=== PATIENT | male | born 1935 | race Caucasian/White ===

== ENCOUNTER 2018-04-15 13:18 | Emergency (ER) | payer MEDICARE, OTHER ==
[~2018-04-15] VITALS: Ht 170.2 cm; Wt 77.6 kg
[~2018-04-15 13:18] MED LIST: ABAC300; ACET325 PO; ACET500 PO; ALBU90OI INH; ALLO100 PO; ALLO300; AREDS-2 PO; ASPI81EC PO; Actigall300 MG PT; Bactrim Ds Tab1 EACH PO; DABI150C PO; ELIQUIS2.5 MG PO; FERR325 PO; FURO20 PO; HYDACE5 PO; LEVO750 PO; MAGNESIUM250 MG PO; METAMUCIL660 GM PO; MULVITMINF PO; Metoprolol Succ25 MG PO; OMEP20ER PO; Omeprazole20 M1; PRED20 PO; Preservision A1 EACH PO; RANI150 PO; RANO500T PO; VALS80 PO; WARF5; Zithromax250 MG PO
== END 2018-04-15 13:46 | disposition home or self-care (01) ==
LOC: ER 13:18
DX: S80.11XA Contusion of right lower leg, initial encounter (principal); I10 Essential (primary) hypertension; K21.9 Gastro-esophageal reflux disease without esophagitis; Z88.6 Allergy status to analgesic agent; Z88.5 Allergy status to narcotic agent; Z88.8 Allergy status to other drugs, medicaments and biological substances; Z79.899 Other long term (current) drug therapy; Z79.01 Long term (current) use of anticoagulants; W22.8XXA Striking against or struck by other objects, initial encounter; Z95.4 Presence of other heart-valve replacement
CPT/HCPCS: 99283

== ENCOUNTER → 2019-11-26 | Outpatient (CLI) | payer MEDICARE, OTHER ==
[~2019-11-26] MED LIST changes: +Actigall300 MG PO; -Actigall300 MG PT; +DILTIAZEM 24HR120 M2 PO; +NITR.4SL SL; +PROAIR DIGIHAL90 MCG INH
[2019-11-26 13:41] LABS: Stool Occult Bld Immuno 1 Negative (NEGATIVE); Stool Occult Bld Immuno 2 Negative (NEGATIVE)
== END | disposition home or self-care (01) ==
LOC: LAB 08:30 → LAB SHORT 08:30 → LAB FUT 09-25 11:35
PROVIDERS: Internal Medicine Gastroenterology
DX: D50.9 Iron deficiency anemia, unspecified (principal); R19.5 Other fecal abnormalities
CPT/HCPCS: 82274

== ENCOUNTER 2019-12-08 19:32 | Inpatient (IN) | payer MEDICARE, OTHER ==
[~2019-12-08] VITALS: Ht 154.9 cm; Wt 77.8 kg
[~2019-12-08 19:32] MED LIST changes: +ALLO300 PO; -FERR325 PO; +FERSU300 PO; +Hair, Skin & N1 EACH PO; -MULVITMINF PO; -Omeprazole20 M1; +Omeprazole20 M1 PO
[2019-12-08 19:57] LABS: BASOPHILS ABSOLUTE AUTO 0.02 K/mm3 (0.00-0.23); BASOPHILS PERCENT AUTO 0 % (0-2); EOSINOPHILS PERCENT AUTO 0 % (0-6); Hematocrit 31.6 % (37.0-53.0); Hemoglobin 10.3 g/dL (13.5-17.5); IMMATURE GRAN ABSOLUTE AUTO 0.06 K/mm3 (0.00-0.10); IMMATURE GRAN PERCENT AUTO 1 % (0-1); LYMPHOCYTES ABSOLUTE AUTO 0.49 K/mm3 (0.84-5.20); LYMPHOCYTES PERCENT AUTO 4 % (21-46); MONOCYTES ABSOLUTE AUTO 1.38 K/mm3 (0.16-1.47); MONOCYTES PERCENT AUTO 12 % (4-13); Mean Corpuscular HGB 33.6 pg (26.0-34.0); Mean Corpuscular HGB Conc 32.6 g/dL (31.5-36.5); Mean Corpuscular Volume 103 fL (80-100); Mean Platelet Volume 10.5 fL (9.1-12.4); NEUTROPHILS ABSOLUTE AUTO 9.89 K/mm3 (1.96-9.15); NEUTROPHILS PERCENT AUTO 84 % (41-73); Platelet Count 146 K/mm3 (150-400); RDW Coefficient Variation 13.6 % (11.7-14.2); RDW Standard Deviation 51.9 fL (35.1-46.3); Red Blood Cell Count 3.07 M/mm3 (4.30-5.90); White Blood Cell Count 11.84 K/mm3 (4.00-11.30)
[2019-12-08 20:14] LABS: Albumin, Blood 3.5 g/dL (3.4-5.0); Albumin/Globulin Ratio 0.8 (0.8-1.8); Calcium, Blood 8.8 mg/dL (8.5-10.1); Creatinine, Blood 1.57 mg/dL (0.60-1.20); Globulin, Blood 4.4 g/dL (2.2-4.0); Potassium, Blood 4.7 mmol/L (3.5-5.5); Total Protein, Blood 7.9 g/dL (6.4-8.2)
[2019-12-08 20:14] LABS: PCO2 Arterial 29.3 mmHg (35-45); PO2 Arterial 71.8 mmHg (80-100); pH Blood Arterial 7.47 (7.35-7.45)
[2019-12-08 20:18] LABS: Source, Urine Voided
[2019-12-08 20:20] LABS: Appearance, Urine Clear (Clear); Bilirubin, Urine Neg (Neg); Blood, Urine 2+ (Neg); Color, Urine Yellow (P-Yellow); Glucose Qualitative, Urine Neg (Neg); Ketones, Urine Neg (Neg); Leukocyte Esterase, Urine Neg (Neg); Nitrite, Urine Neg (Neg); Protein, Urine 3+ (Neg); Urobilinogen, Urine 2+ (Normal)
[2019-12-08 20:30] LABS: Bacteria Few /hpf; Squamous Epithelial Cells Rare /hpf (Few); White Blood Cells, Urine 0-2 /hpf (0-5)
[2019-12-08] MEDS ORDERED: DILT120 PO (21:01)
[2019-12-08] MEDS ORDERED: ASCO500 PO (21:04)
[2019-12-08] MEDS ORDERED: Vitamin D2000 UNIT PO (21:04)
[2019-12-08 22:05] LABS: Adenovirus Not Detected (NOT DETECT); Bordetella pertussis Not Detected (NOT DETECT); Chlamydophila pneumoniae Not Detected (NOT DETECT); Coronavirus 229E Not Detected (NOT DETECT); Coronavirus HKU1 Not Detected (NOT DETECT); Coronavirus NL63 Not Detected (NOT DETECT); Coronavirus OC43 Not Detected (NOT DETECT); Human Metapneumovirus Not Detected (NOT DETECT); Human Rhinovirus/Enterovirus Not Detected (NOT DETECT); Influenza A/2009-H1 Not Detected (NOT DETECT); Influenza A/H1 Not Detected (NOT DETECT); Influenza A/H3 Not Detected (NOT DETECT); Influenza B Not Detected (NOT DETECT); Mycoplasma pneumoniae Not Detected (NOT DETECT); Parainfluenza Virus 1 Not Detected (NOT DETECT); Parainfluenza Virus 2 Not Detected (NOT DETECT); Parainfluenza Virus 3 Not Detected (NOT DETECT); Parainfluenza Virus 4 Not Detected (NOT DETECT); Respiratory Syncytial Virus Not Detected (NOT DETECT)
--- NOTE | 2019-12-09 00:20 | NUR ---
ASSUMED CARE OF PATIENT AT APPROXIMALEY 2315 FROM ED RN. PATIENT TRANSFERRED SBA FROM ED TO PCU STRETCHER. PATIENT ALERT AND ORIENTED TO SELF, , LOCATION AND YEAR; UNABLE TO STATE DATE. FORGETFUL. PATIENT DENIES CP/PRESSURE, PAIN ELSEWHERE, NUMBNESS, TINGLING, DIZZINESS OR NAUSEA. AFIB ON TELE W/ RATE OF 110'S; OXYGEN SATURATION ABOVE 90% ON 2LPM VIA NC OR CPAP. IN ISOLATION TO R/O COVID; RAPID NEGATIVE; SEND OUT ESCORTED TO LAB BY BRITTANIE HILL COMPLETE. IVF INFUSING PER ORDER. PATIENT CURRENTLY RESTING IN BED; CALL LIGHT IN REACH; BED IN LOWEST POSISTION; BED ALARM ON; WILL CONTINUE TO MONITOR AND ASSESS UNTIL END OF SHIFT.
--- NOTE | 2019-12-09 06:15 | NUR ---
NO ACUTE CHANGES TO REPORT. PATIENT SLEPT ABOUT FIVE HOURS. VSS. WILL CONTINUE TO MONITOR AND ASSESS UNTIL END OF SHIFT.
[2019-12-09 07:24] LABS: BASOPHILS ABSOLUTE AUTO 0.03 K/mm3 (0.00-0.23); BASOPHILS PERCENT AUTO 0 % (0-2); EOSINOPHILS PERCENT AUTO 0 % (0-6); Hemoglobin 8.4 g/dL (13.5-17.5); IMMATURE GRAN ABSOLUTE AUTO 0.33 K/mm3 (0.00-0.10); IMMATURE GRAN PERCENT AUTO 2 % (0-1); LYMPHOCYTES ABSOLUTE AUTO 0.39 K/mm3 (0.84-5.20); LYMPHOCYTES PERCENT AUTO 2 % (21-46); MONOCYTES PERCENT AUTO 8 % (4-13); Mean Corpuscular HGB 33.5 pg (26.0-34.0); Mean Corpuscular HGB Conc 32.3 g/dL (31.5-36.5); Mean Corpuscular Volume 104 fL (80-100); Mean Platelet Volume 10.8 fL (9.1-12.4); NEUTROPHILS ABSOLUTE AUTO 18.92 K/mm3 (1.96-9.15); NEUTROPHILS PERCENT AUTO 89 % (41-73); Platelet Count 94 K/mm3 (150-400); RDW Coefficient Variation 13.8 % (11.7-14.2); RDW Standard Deviation 53.3 fL (35.1-46.3); Red Blood Cell Count 2.51 M/mm3 (4.30-5.90); White Blood Cell Count 21.37 K/mm3 (4.00-11.30)
[2019-12-09 07:40] LABS: Albumin, Blood 2.6 g/dL (3.4-5.0); Albumin/Globulin Ratio 0.7 (0.8-1.8); Bilirubin, Total 0.8 mg/dL (0.1-1.0); Bun/Creatinine Ratio 19.9 (12.0-20.0); Calcium, Blood 7.8 mg/dL (8.5-10.1); Creatinine, Blood 1.46 mg/dL (0.60-1.20); Globulin, Blood 3.7 g/dL (2.2-4.0); Potassium, Blood 4.7 mmol/L (3.5-5.5); Total Protein, Blood 6.3 g/dL (6.4-8.2)
--- NOTE | 2019-12-09 15:46 | NUR ---
HOSPITALIST UPDATED ON PT CONDITION. PT HAS AN INCREASED SOB, TEMP, PULSE & 1 EPISODE OF EMESIS. LUNG SOUNDS REMAIN DIM IN THE LLL, WHEEZES THROUGHOUT. PT DENIES CP/PRESSURE AT THIS TIME. PT IS CURRENTLY ON 2 L VIA NC, O2 SATS >92%. NS INFUSION DECREASED FROM 75 ML/HR TO 25 ML/HR. NO NEW ORDERS OBTAINED AT WERE OBTAINED. RESP THERAPY DEPT NOTIFIED AT THIS TIME. LINEN CHANGED, TYLENOL GIVEN. CALL LIGHT IN REACH, [facility] [place] [facility]
--- NOTE | 2019-12-09 18:34 | NUR ---
SHIFT SUMMARY PT IS RESTING QUIETLY IN BED AT THIS TIME, RESP UNLABORED, VSS. NS INFUSING @ 25 ML/HR, TEMP HAS DECREASED TO 99.4, PT HAS HAD NO MORE NAUSEA. HOSPITALIST CAME TO THE BEDSIDE TO ASSESS PT. PT STATED HE "WAS FEELING MUCH BETTER". IV ROCEPHIN INFUSING PER EMAR. CONT BIOX IN PLACE, PT HAS HAD MULTIPLE STOOLS TODAY, DENIES ABD PAIN. PT S A STAND BY ASSIST TO THE BATHROOM. WCTM & REPORT TO NOC RN, CALL LIGHT IN REACH.
[2019-12-10 04:33] LABS: BASOPHILS ABSOLUTE AUTO 0.01 K/mm3 (0.00-0.23); BASOPHILS PERCENT AUTO 0 % (0-2); Hematocrit 26.1 % (37.0-53.0); Hemoglobin 8.3 g/dL (13.5-17.5); LYMPHOCYTES ABSOLUTE AUTO 0.24 K/mm3 (0.84-5.20); LYMPHOCYTES PERCENT AUTO 1 % (21-46); MONOCYTES ABSOLUTE AUTO 1.25 K/mm3 (0.16-1.47); MONOCYTES PERCENT AUTO 6 % (4-13); Mean Corpuscular HGB 33.1 pg (26.0-34.0); Mean Corpuscular HGB Conc 31.8 g/dL (31.5-36.5); Mean Corpuscular Volume 104 fL (80-100); Platelet Count 76 K/mm3 (150-400); RDW Coefficient Variation 13.9 % (11.7-14.2); RDW Standard Deviation 53.3 fL (35.1-46.3); Red Blood Cell Count 2.51 M/mm3 (4.30-5.90); White Blood Cell Count 20.14 K/mm3 (4.00-11.30)
[2019-12-10 04:47] LABS: Bun/Creatinine Ratio 22.9 (12.0-20.0); Calcium, Blood 8.1 mg/dL (8.5-10.1); Creatinine, Blood 1.7 mg/dL (0.60-1.20); Potassium, Blood 5.1 mmol/L (3.5-5.5)
[2019-12-10 04:51] LABS: EOSINOPHILS PERCENT AUTO 0 % (0-6); IMMATURE GRAN PERCENT AUTO 3 % (0-1); NEUTROPHILS ABSOLUTE AUTO 18.04 K/mm3 (1.96-9.15); NEUTROPHILS PERCENT AUTO 90 % (41-73)
--- NOTE | 2019-12-10 07:57 | NUR ---
SHIFT SUMMARY PATIENT PLEASENT AND COOPERATIVE THROUGHOUT THE NIGHT. PATIENT VERY CHEERFUL AND TALKITIVE WITH STAFF. PATIENT APPEARED TO SLEEP WELL LAST NIGHT. PATIENT USED HIS CPAP THROUGHOUT MOST OF THE NIGHT, CONTINUOUS BIOX IN PLACE. PATIENT ON 2-3L O2 WHEN OFF CPAP. REPORT GIVEN TO ONCOMING RN.
--- NOTE | 2019-12-10 08:50 | NUR ---
AM NOTE... ASSUMED CARE OF PT APROX 0700. PT IS A&0x4 AND SBA IN THE ROOM. PT IS IN R/O FOR COVID-19. PT IS ON HIS HOME DOSE OF O2 AT 3L NC WITH O2 SATS >90%. PT BECOMES SOB WITH ACTIVITY, AND RECOVERS FAIRLY QUICKLY WITH PURSED LIP BREATHING. L/S COARSE W/EXP WHEEZES T/O AND DIM IN THE BASES. BT PRESENT AND NORMOACTIVE ABD SOFT AND NONTENDER TO PALP. PT WAS ABLE TO WALK TO THE BATHROOM TO HAVE SM BM. NO EDEMA NOTED ON ASSESSMENT. CALL LIGHT IN REACH WILL CONTINUE TO MONITOR.
--- NOTE | 2019-12-10 18:12 | NUR ---
SHIFT SUMMARY... PT HAD AN EPISODE APROX 1145 THIS SHIFT. PT'S HR SHOT UP FROM AFIB IN THE 90'S TO 140'S-150'S, PT WAS VERY SOB, WITH LABORED BREATHING, O2 WAS INCREASED FROM 3L NC TO 6L NC. RT WAS CALLED AND WAS GIVEN RESCUE INHALER TO THE PT. PT'S BP WAS STABLE AT THE TIME BUT HIS TEMP WAS 102.8. PT WAS PUT ON HIS CPAP WITH 6L BLEED IN, PROVIDER WAS CALLED, NEW ORDERS OBTAINED FOR NEBULIZERS AND INCREASED FLUIDS. PT WAS GIVEN TYLENOL FOR HIS TEMP AND MONITORED, AFTER APROX 30 MINS HIS WORK OF BREATHING DECREASED WELL HIS HEART RATE. CURRENTLY HE IS AFIB IN THE 100'S. PT'S COVID-19 CAME BACK NEGATIVE. THIS RN SPOKE WITH THE PT'S , PER HER THE PT DOES NOT WEAR O2 AT HOME JUST HIS CPAP WITH NO BLEED IN TO SLEEP. PT WAS CONFUSED ON THIS ISSUE WHEN THIS RN ASKED HIM THIS AM THE PT STATED HE WORE 3L NC AT BASELINE. PT IS ON RA AT BASELINE. CALL LIGHT IN REACH WILL CONTINUE TO MONITOR UNTIL REPORT IS GIVEN TO ONCOMING RN.
--- NOTE | 2019-12-11 05:24 | NUR ---
SHIFT SUMMARY: PT AFEBRILE THROUGHOUT SHIFT. HR STABLE RANGING IN 80-90'S. O2 TITRATED DOWN TO 1L VIA NC THIS MORNING. PT WITH EXPIRATORY WHEEZE AT TIMES. O2 DROPPING TO LOW 90'S WITH MOVEMENT. CONT BIOX IN PLACE. LAST BAG OF FLUIDS INFUSING PER EMAR. USING URINAL AT BEDSIDE.
--- NOTE | 2019-12-11 07:43 | NUR ---
AM NOTE... ASSUMED CARE OF PT APROX 0700. PT IS A&Ox4 AND SBA IN THE ROOM. PT LOOKS MUCH BETTER THAN HE DID YESTERDAY, IMPROVED COLOR IN HIS SKIN, WORK OF BREATHING HAS IMPROVED AND PT IS ON 1L NC WITH O2 SATS >92%. L/S DIM ON THE LEFT SIDE COARSE CRACKLES NOTED ON THE RIGHT. RR 28 EVEN AND UNLABORED. NO EDEMA NOTED ON ASSESSMENT. VS STABLE AT THIS TIME. CALL LIGHT IN REACH WILL CONTINUE TO MONITOR
[2019-12-11 09:17] LABS: BASOPHILS ABSOLUTE AUTO 0.02 K/mm3 (0.00-0.23); BASOPHILS PERCENT AUTO 0 % (0-2); EOSINOPHILS PERCENT AUTO 0 % (0-6); IMMATURE GRAN PERCENT AUTO 2 % (0-1); LYMPHOCYTES ABSOLUTE AUTO 0.43 K/mm3 (0.84-5.20); LYMPHOCYTES PERCENT AUTO 2 % (21-46); MONOCYTES ABSOLUTE AUTO 1.13 K/mm3 (0.16-1.47); MONOCYTES PERCENT AUTO 5 % (4-13); Mean Corpuscular HGB 33.5 pg (26.0-34.0); Mean Corpuscular HGB Conc 32.2 g/dL (31.5-36.5); Mean Corpuscular Volume 104 fL (80-100); Mean Platelet Volume 11.4 fL (9.1-12.4); NEUTROPHILS ABSOLUTE AUTO 20.02 K/mm3 (1.96-9.15); NEUTROPHILS PERCENT AUTO 91 % (41-73); NRBC ABSOLUTE 0.02 K/mm3 (0.00-0.02); NRBC Auto 0.1 /100 WBC (0.0-0.2); Platelet Count 109 K/mm3 (150-400); RDW Coefficient Variation 13.9 % (11.7-14.2); RDW Standard Deviation 52.8 fL (35.1-46.3)
[2019-12-11 09:25] LABS: Hematocrit 17.7 % (37.0-53.0); Hemoglobin 5.7 g/dL (13.5-17.5)
[2019-12-11 09:53] LABS: Albumin, Blood 2.6 g/dL (3.4-5.0); Albumin/Globulin Ratio 0.6 (0.8-1.8); Bilirubin, Direct 0.3 mg/dL (0.0-0.3); Bilirubin, Indirect 0.2 mg/dL (0.1-0.7); Bilirubin, Total 0.5 mg/dL (0.1-1.0); Globulin, Blood 4.1 g/dL (2.2-4.0); Total Protein, Blood 6.7 g/dL (6.4-8.2)
[2019-12-11 10:08] LABS: BASOPHILS ABSOLUTE AUTO 0.01 K/mm3 (0.00-0.23); BASOPHILS PERCENT AUTO 0 % (0-2); EOSINOPHILS PERCENT AUTO 0 % (0-6); Hematocrit 27.1 % (37.0-53.0); Hemoglobin 8.8 g/dL (13.5-17.5); IMMATURE GRAN ABSOLUTE AUTO 0.23 K/mm3 (0.00-0.10); IMMATURE GRAN PERCENT AUTO 1 % (0-1); LYMPHOCYTES ABSOLUTE AUTO 0.29 K/mm3 (0.84-5.20); LYMPHOCYTES PERCENT AUTO 2 % (21-46); MONOCYTES ABSOLUTE AUTO 0.84 K/mm3 (0.16-1.47); MONOCYTES PERCENT AUTO 5 % (4-13); Mean Corpuscular HGB 33.2 pg (26.0-34.0); Mean Corpuscular HGB Conc 32.5 g/dL (31.5-36.5); Mean Corpuscular Volume 102 fL (80-100); Mean Platelet Volume 11.7 fL (9.1-12.4); NEUTROPHILS ABSOLUTE AUTO 15.09 K/mm3 (1.96-9.15); NEUTROPHILS PERCENT AUTO 92 % (41-73); NRBC ABSOLUTE 0.02 K/mm3 (0.00-0.02); NRBC Auto 0.1 /100 WBC (0.0-0.2); Platelet Count 94 K/mm3 (150-400); RDW Coefficient Variation 14.1 % (11.7-14.2); RDW Standard Deviation 53.4 fL (35.1-46.3); Red Blood Cell Count 2.65 M/mm3 (4.30-5.90); White Blood Cell Count 16.46 K/mm3 (4.00-11.30)
--- NOTE | 2019-12-11 15:46 | NUR ---
Echocardiogram completed.
--- NOTE | 2019-12-11 17:48 | NUR ---
SHIFT SUMMARY... NO ACUTE NEGATIVE CHANGES NOTED THIS SHIFT. VS HAVE BEEN STABLE T/O SHIFT. PT HAS BEEN AFEBRILE. PT HAS BEEN ON 1L NC WITH O2 SATS >92%. PT HAS BEEN UP IN THE CHAIR FOR MEALS AND HAS WALKED TO THE BATHROOM, HE BECOMES SLIGHTLY SOB WITH ACTIVITY BUT RECOVERS QUICKLY. PT HAS BEEN MORE IMPULSIVE THIS SHIFT, SO BED ALARM AND CHAIR ALARM HAVE BEEN USED. CALL LIGHT IN REACH WILL CONTINUE TO MONITOR UNTIL REPORT IS GIVEN TO ONCOMING RN.
--- NOTE | 2019-12-11 20:21 | NUR ---
ASSUMED CARE OF PATIENT AT APPROXIMATELY 1900 FROM ROSE Jaime RN. PATIENT ALERT AND ORIENTED X4; FORGETFUL AT TIMES. PATIENT DENIES CP/PRESSURE, PAIN ELSEWHERE, NUMBNESS, TINGLING, DIZZINESS OR NAUSEA. MEDICAL NO TELE STATUS; OXYGEN SATURATION ABOVE 90% ON ROOM AIR WHILE SITTING; 1LPM VIA NC WITH AMBULATION DUE TO DROPPING TO 88% AFTER RETURNING FROM BATHROOM; CPAP FOR SLEEP. PIV S/L. PATIENT CURRENTLY RESTING IN BED; CALL LIGHT IN REACH; BED IN LOWEST POSISTION; BED ALARM ON; WILL CONTINUE TO MONITOR AND ASSESS UNTIL END OF SHIFT.
[2019-12-12 04:08] LABS: BASOPHILS ABSOLUTE AUTO 0.01 K/mm3 (0.00-0.23); BASOPHILS PERCENT AUTO 0 % (0-2); EOSINOPHILS PERCENT AUTO 0 % (0-6); Hematocrit 24.4 % (37.0-53.0); IMMATURE GRAN ABSOLUTE AUTO 0.18 K/mm3 (0.00-0.10); IMMATURE GRAN PERCENT AUTO 1 % (0-1); LYMPHOCYTES PERCENT AUTO 2 % (21-46); MONOCYTES ABSOLUTE AUTO 1.06 K/mm3 (0.16-1.47); MONOCYTES PERCENT AUTO 8 % (4-13); Mean Corpuscular HGB 33.2 pg (26.0-34.0); Mean Corpuscular HGB Conc 32.8 g/dL (31.5-36.5); Mean Corpuscular Volume 101 fL (80-100); Mean Platelet Volume 11.7 fL (9.1-12.4); NEUTROPHILS ABSOLUTE AUTO 11.96 K/mm3 (1.96-9.15); NEUTROPHILS PERCENT AUTO 89 % (41-73); NRBC ABSOLUTE 0.08 K/mm3 (0.00-0.02); NRBC Auto 0.6 /100 WBC (0.0-0.2); Platelet Count 89 K/mm3 (150-400); RDW Standard Deviation 52.2 fL (35.1-46.3); Red Blood Cell Count 2.41 M/mm3 (4.30-5.90); White Blood Cell Count 13.41 K/mm3 (4.00-11.30)
[2019-12-12 04:23] LABS: Albumin, Blood 2.6 g/dL (3.4-5.0); Anion Gap 9 mmol/L (6-16); Blood Urea Nitrogen 47 mg/dL (8-24); Bun/Creatinine Ratio 29.2 (12.0-20.0); CO2, Blood 18 mmol/L (21-32); Calcium, Blood 8.2 mg/dL (8.5-10.1); Chloride, Blood 112 mmol/L (98-108); Creatinine, Blood 1.61 mg/dL (0.60-1.20); Glomerular Filtration Rate 44 (60-); Glucose, Blood 148 mg/dL (70-99); Potassium, Blood 4.8 mmol/L (3.5-5.5); Sodium, Blood 139 mmol/L (136-145)
--- NOTE | 2019-12-12 05:47 | NUR ---
PATIENT SLEPT ABOUT SIX HOURS LAST NIGHT; WORE CPAP FOR ABOUT TWO HOURS; ON ROOM AIR FOR REST OF NIGHT; REPORT CALLED TO MEDICAL RN ANNE Mcneal PATIENT HAD A SHOWER THIS AM; REPORTS READY TO GO HOME; ESCORTED VIA W/C BY YOLY MORTON TO MEDICAL ROOM 302 W/ ALL PATIENT BELONGINGS AND MEDICATIONS. VSS.
--- NOTE | 2019-12-12 05:56 | NUR ---
SHIFT SUMMARY RECEIVED PT AT 0545 TO ROOM 305. PT IS LYING IN BED FALLING BACK ASLEEP. CALL LIGHT IN REACH, BED IN LOWEST POSTION, BED ALARM ON, WILL CONTINUE TO MONITOR UNTIL DAYSHIFT NURSE ARRIVES.
--- NOTE | 2019-12-12 10:55 | NUR ---
PT AMBULATED APROX 100FT IN THE HALLWAYS. SATS 89-91% ON RA.
[2019-12-12] MEDS ORDERED: VISBIOME 112.51 EACH PO (11:54)
[2019-12-12] MEDS ORDERED: GUAI600T33 PO (11:54)
[2019-12-12] MEDS ORDERED: LIDOCAINE PAIN1 EACH TOP (11:57)
[2019-12-12] MEDS ORDERED: ALBU90OI INH (11:57)
[2019-12-12] MEDS ORDERED: LEVFLO500 PO (11:57)
--- NOTE | 2019-12-12 13:55 | NUR ---
ESCORTED PT OUT VIA W/C TO CAR TO MEET WITH SPOUSE, DISCHARGE INSTRUCTIONS REVIEWED WITH BOTH PT AND SPOUSE. RX FAXED TO [facility]. MANDI DC'D BY RN STUDENT ZOHRA. F/U APPT MADE WITH DR DENISE. IV HENRIETTA GIVEN PRIOR TO DISCHARGE. HOME 02 EVAL COMPLETED AND PT DID NOT REQUIRE HOME 02. HOME HEALTH ORDERS PLACED. PT SHORT OF BREATH WITH ANY EXERTION BUT SATS MAINTAINED ABOVE 90%. PT DC'D HOME AT 1340.
== END 2019-12-12 13:40 | disposition home or self-care (01) | DRG 871 ==
LOC: ER 19:32 → PCU 23:06 → MEDS 12-12 05:44
PROVIDERS: Internal Medicine; Nurse Practitioner Acute Care; Physician Assistant; ADMIT Internal Medicine
PROC: 5A09357 Assistance with Respiratory Ventilation, Less than 24 Consecutive Hours, Continuous Positive Airway Pressure (ICD-10-PCS; principal; 2019-12-10)
DX: A41.51 Sepsis due to Escherichia coli [E. coli] (principal); G92 Toxic encephalopathy; J96.01 Acute respiratory failure with hypoxia; J15.5 Pneumonia due to Escherichia coli; Z95.3 Presence of xenogenic heart valve; Z85.46 Personal history of malignant neoplasm of prostate; I48.0 Paroxysmal atrial fibrillation; G47.33 Obstructive sleep apnea (adult) (pediatric); M10.9 Gout, unspecified; Z95.0 Presence of cardiac pacemaker; I35.0 Nonrheumatic aortic (valve) stenosis; Z90.79 Acquired absence of other genital organ(s); N18.3 Chronic kidney disease, stage 3 (moderate); E66.9 Obesity, unspecified; Z99.2 Dependence on renal dialysis; I12.9 Hypertensive chronic kidney disease with stage 1 through stage 4 chronic kidney disease, or unspecified chronic kidney disease
CPT/HCPCS: 0099U; 36415; 36600; 71045; 76705; 80048; 80053; 80069; 80076; 81001; 82803; 83605; 83880; 84145; 84484; 85025; 87040; 87077; 87186; 93005; 93010; 93306; 94640; 94660; 94760; 94761; 94762; 96361; 96365; 96367; 97112; 97162; 97166; 97530; 97535; 99285-25; A9270; J0456; J0696; J2405; J7030; J7050; J7512; U0002; U0003

== ENCOUNTER → 2020-03-28 | Outpatient (CLI) | payer MEDICARE, OTHER ==
[~2020-03-28] MED LIST changes: +ASCO500 PO; +DILT120 PO; +GUAI600T33 PO; +LEVFLO500 PO; +LIDOCAINE PAIN1 EACH TOP; +VISBIOME 112.51 EACH PO; +Vitamin D2000 UNIT PO
[2020-03-28 15:46] LABS: Stool Occult Bld Immuno 1 Positive (NEGATIVE)
== END ==
LOC: LAB SHORT 10:28 → PLD 10:28
PROVIDERS: Internal Medicine Gastroenterology
DX: D50.9 Iron deficiency anemia, unspecified (principal)
CPT/HCPCS: 82274

== ENCOUNTER → 2020-03-30 | Outpatient (CLI) | payer MEDICARE, OTHER ==
[2020-03-30 15:49] LABS: Creatinine Urine 63.9 mg/dL (27.00-270.00); Protein, Urine Quantitative 45.5 mg/dL (0.0-11.9)
== END | disposition home or self-care (01) ==
LOC: LAB SHORT 12:36 → LAB 12:36
PROVIDERS: Internal Medicine Nephrology
DX: N18.3 Chronic kidney disease, stage 3 (moderate) (principal); D63.1 Anemia in chronic kidney disease; D50.9 Iron deficiency anemia, unspecified; N25.81 Secondary hyperparathyroidism of renal origin; E55.9 Vitamin D deficiency, unspecified; D51.8 Other vitamin B12 deficiency anemias; D52.8 Other folate deficiency anemias; E78.00 Pure hypercholesterolemia, unspecified; R76.9 Abnormal immunological finding in serum, unspecified; R94.5 Abnormal results of liver function studies; R94.6 Abnormal results of thyroid function studies
CPT/HCPCS: 81050; 82043; 82570; 84156

== ENCOUNTER → 2020-08-14 | Outpatient (CLI) | payer MEDICARE, OTHER ==
[2020-08-14 13:09] LABS: Stool Occult Blood Guaiac 1 Neg (Neg)
== END ==
LOC: LAB 08:15 → LAB SHORT 08:15
PROVIDERS: Internal Medicine Gastroenterology
DX: D50.9 Iron deficiency anemia, unspecified (principal)
CPT/HCPCS: 82270

== ENCOUNTER 2021-10-24 18:53 | Inpatient (IN) | payer OTHER ==
[~2021-10-24] VITALS: Ht 172.7 cm; Wt 68.0 kg
[~2021-10-24 18:53] MED LIST changes: +CARTIA XT PO; -DILT120 PO; +OSEL12SU2 PO; +Tamiflu75 MG PO
[2021-10-24 19:26] LABS: BASOPHILS ABSOLUTE AUTO 0.01 K/mm3 (0.00-0.23); BASOPHILS PERCENT AUTO 0 % (0-2); EOSINOPHILS ABSOLUTE AUTO 0.01 K/mm3 (0.00-0.68); EOSINOPHILS PERCENT AUTO 0 % (0-6); Hematocrit 30.6 % (37.0-53.0); Hemoglobin 9.8 g/dL (13.5-17.5); IMMATURE GRAN ABSOLUTE AUTO 0.04 K/mm3 (0.00-0.10); IMMATURE GRAN PERCENT AUTO 0 % (0-1); LYMPHOCYTES ABSOLUTE AUTO 0.11 K/mm3 (0.84-5.20); LYMPHOCYTES PERCENT AUTO 1 % (21-46); MONOCYTES ABSOLUTE AUTO 0.07 K/mm3 (0.16-1.47); MONOCYTES PERCENT AUTO 1 % (4-13); Mean Corpuscular HGB 32.7 pg (26.0-34.0); Mean Corpuscular Volume 102 fL (80-100); NEUTROPHILS ABSOLUTE AUTO 9.16 K/mm3 (1.96-9.15); NEUTROPHILS PERCENT AUTO 98 % (41-73); Platelet Count 90 K/mm3 (150-400); RDW Coefficient Variation 13.6 % (11.7-14.2); RDW Standard Deviation 50.8 fL (35.1-46.3)
[2021-10-24 19:38] LABS: Albumin, Blood 3.7 g/dL (3.4-5.0); Albumin/Globulin Ratio 1.1 (0.8-1.8); Bilirubin, Total 0.6 mg/dL (0.1-1.0); Calcium, Blood 8.9 mg/dL (8.5-10.1); Creatinine, Blood 1.78 mg/dL (0.60-1.20); Globulin, Blood 3.4 g/dL (2.2-4.0); Potassium, Blood 4.7 mmol/L (3.5-5.5); Total Protein, Blood 7.1 g/dL (6.4-8.2)
[2021-10-24 20:21] LABS: Base Excess Venous -3.7 mmol/L; Bicarbonate Venous 21.7 mmol/L (24.0-30.0); PCO2 Venous 34.9 mmHg (38-42); PO2 Venous 106 mmHg (38-42); pH Blood Venous 7.39 (7.34-7.37)
[2021-10-24 20:43] LABS: U Amphetamine Screen Not Detected; U Barbituate Screen Not Detected; U Methamphetamine Screen Not Detected
[2021-10-24 20:44] LABS: U Benzodiazapine Screen Not Detected; U Buprenorphine Screen Not Detected; U Cannabinoids Screen Not Detected; U Cocaine Screen Not Detected; U Methadone Screen Not Detected; U Opiates Screen Not Detected; U Oxycodone Screen Not Detected; U Phencyclidine Screen Not Detected; U Propoxyphene Screen Not Detected
[2021-10-24 20:45] LABS: Influenza A, PCR NEGATIVE (NEGATIVE); Influenza B, PCR NEGATIVE (NEGATIVE); Resp Syncytial Virus, PCR NEGATIVE (NEGATIVE); SARS-Cov-2 (COVID-19) PCR, MMC NEGATIVE (NEGATIVE)
[2021-10-24 20:47] LABS: Source, Urine Straight Cath
[2021-10-24 20:54] LABS: Bilirubin, Urine Neg (Neg); Blood, Urine 2+ (Neg); Glucose Qualitative, Urine Neg (Neg); Ketones, Urine Neg (Neg); Leukocyte Esterase, Urine Neg (Neg); Nitrite, Urine Neg (Neg); Protein, Urine 3+ (Neg); Specific Gravity, Urine 1.015 (1.003-1.022); Urobilinogen, Urine NORM (Normal)
[2021-10-24 20:59] LABS: Appearance, Urine Clear (Clear); Color, Urine Yellow (P-Yellow)
[2021-10-24 21:04] LABS: Amorphous Light (0-Heavy); Bacteria Few /hpf; Red Blood Cells, Urine 0-2 /hpf (0-2); Squamous Epithelial Cells Rare /hpf (Few); White Blood Cells, Urine 0-2 /hpf (0-5)
[2021-10-24] MEDS ORDERED: CALCIUM CITRAT200 MG PO (23:40)
[2021-10-24] MEDS ORDERED: LIDO700A20 TOP (23:41)
--- NOTE | 2021-10-24 23:43 | NUR ---
REPORT RECIEVED FROM GRANITE COUNTERTOP INSTALLER, AWAITING PT T/F TO ROOM 334.
[2021-10-24] MEDS ORDERED: PRESERVISION A1 EAC1 PO (23:44)
[2021-10-24] MEDS ORDERED: GLUCOSAMINE-CH1 EAC7 PO (23:45)
[2021-10-24] MEDS ORDERED: Vitamin B Comple1 EA PO (23:46)
[2021-10-24] MEDS ORDERED: Alph-E-Mixed400 UNIT PO (23:47)
[2021-10-25 05:22] LABS: BASOPHILS ABSOLUTE AUTO 0.04 K/mm3 (0.00-0.23); BASOPHILS PERCENT AUTO 0 % (0-2); EOSINOPHILS ABSOLUTE AUTO 0.01 K/mm3 (0.00-0.68); EOSINOPHILS PERCENT AUTO 0 % (0-6); Hematocrit 28.4 % (37.0-53.0); Hemoglobin 9.1 g/dL (13.5-17.5); IMMATURE GRAN ABSOLUTE AUTO 0.24 K/mm3 (0.00-0.10); IMMATURE GRAN PERCENT AUTO 1 % (0-1); LYMPHOCYTES ABSOLUTE AUTO 0.51 K/mm3 (0.84-5.20); LYMPHOCYTES PERCENT AUTO 2 % (21-46); MONOCYTES ABSOLUTE AUTO 2.11 K/mm3 (0.16-1.47); MONOCYTES PERCENT AUTO 10 % (4-13); Mean Corpuscular HGB 32.7 pg (26.0-34.0); Mean Corpuscular Volume 102 fL (80-100); Mean Platelet Volume 10.7 fL (9.1-12.4); NEUTROPHILS ABSOLUTE AUTO 18.46 K/mm3 (1.96-9.15); NEUTROPHILS PERCENT AUTO 86 % (41-73); Platelet Count 77 K/mm3 (150-400); RDW Coefficient Variation 13.8 % (11.7-14.2); RDW Standard Deviation 51.8 fL (35.1-46.3); Red Blood Cell Count 2.78 M/mm3 (4.30-5.90); White Blood Cell Count 21.37 K/mm3 (4.00-11.30)
[2021-10-25 05:44] LABS: Bun/Creatinine Ratio 31.2 (12.0-20.0); Calcium, Blood 8.6 mg/dL (8.5-10.1); Creatinine, Blood 1.7 mg/dL (0.60-1.20); Potassium, Blood 4.3 mmol/L (3.5-5.5)
--- NOTE | 2021-10-25 05:52 | NUR ---
SUMMARY: PT A/O TO SELF, FAMILY, SURROUNDINGS AND EVENT BUT HE'D DEVELOPED AMS PRIOR TO ADMISSION. HE'S MILDLY FORGETFUL AND IMPULSIVE TO VOID W/BED ALARM ON FOR POSS FALL RISK. PT COVEYS NEEDS W/O DIFFICULTY AND IS PLEASANT AND COOPERATIVE W/CARE BUT IS VERY [place] W/WRITTEN Q'S MOST EFFECTIVE FOR COMMUNICATION. HE RECIEVED TYLENOL FOR RELIEF OF FERRELL AND WAS GIVEN IV ABX IN ER FOR PNM. LS ARE CLEAR AND DIM T/O W/SPO2 WNL ON RA AND NO S/S RESP DISTRESS. HE USED URINAL AND TOILET TO VOID W/SCANT AMT BLOOD AT [facility] OBSERVED FROM ST.CATH PROCEDURE IN ER. PM NOTED TO L.CHEST WALL AND TELEMETRY INTACT IN NSR AT 70'S BPM. NO ACUTE CHANGES, VSS/AFEBRILE. WCTM AND REPORT TO DAY RN.
--- NOTE | 2021-10-25 12:16 | NUR ---
Initial palliative care consult: Reji is an 86 year old with a history of a-fib (on eliquis), prostate cancer, pancreatitis, HTN, cholangitis, aortic valve replacement, pacemaker, CKD stage 3. He was admitted on 10/24/21 with bilat pneumonia and sepsis. He lives with his . He has two step sons who live locally and 4 biological children scattered throughout the state. He reports a good support system with family and his muslim. Reji is [place], he normally wears hearing aides, however he doesn't have them in at this time. He is A/O, slightly forgetful of an occasional word. He uses a CPAP at home and he has a cane which he states that he doesn't always use for stability support. He reports that he is a and his P[facility] is at the [facility] (he couldn't remember the PCP name.) He has an AD on file which he states are his current wishes. He doesn't have a POLST but is interested in taking two home for himself and his to discuss to to fill out. He states that he would like to remain a full code with no fci life support on machines. Reji reports that he his enjoys gardening but that their backyard is steep. He worries about her falling outside which has happened in the past. Discussed options for a wearable alert system. Reji requested information on that service. Medical alert system resource sheet obtained from case management and provided to pt. Nursing reports pt's , Joan, visited earlier today. Offered to return to discuss POLST forms and answer questions when Joan returns. Pt reports he has no pain. He reports some chest heaviness however he declines SOB at rest. No cough noted. Pt is on RA during our conversation and doesn't appear to become SOB with talking. He reports some weakness. Would benefit from PT/OT eval for safety and strenghening. Reji reports he has had pneumonia in the past. He states that occasionally he will swallow fluids and "They go down the wrong pipe." He reports that this isn't a frequent problem. May possibly also benefit from a ST eval to evaluate potential aspiration. PC to follow up for conversation/questions re: POLST forms with pt and his . Nursing updated and will contact PC nurse if pt/ would like to discuss POLST form.
--- NOTE | 2021-10-25 16:14 | NUR ---
Returned to room to meet with Reji and his Joan. Dicussed POLST forms, and different levels of care. Questions answered. Reji filled his out and this chief underwriter spoke with Dr. Cherry. to sign POLST form and new verbal order for DNR placed in EMR. Pt's to take her POLST form to her PCP as she wishes to complete hers as well. Nursing updated. POLST form placed on chart for MD to sign.
--- NOTE | 2021-10-25 19:00 | NUR ---
SHIFT SUMMARY- PT ALERT AND ORIENTED TO SELF AND FAMILY, POOR HISTORIAN AND A LITTLE FORGETFUL. PT IS IMPULSIVE AND A LITTLE WEAK, BED AND CHAIR ALARMS FOR SAFETY. HE DID WORK WITH PHYSICAL THERAPY TODAY. SPOUSE BROUGHT IN HIS HEARING AID BATTERIES WHICH IMPROVED THE PT [place] STATUS, BUT HE IS STILL [place]. PT SPOUSE WAS IN TO SEE HIM AND HAS SPOKEN TO THE DOCTOR. PT IS RECIEVING IV ABX. IV IS SL AT THIS TIME. PT IN BED, CALL LIGHT IN REACH NO S&S OF DISTRESS NOTED. WILL CTM AND PASS ON TO NIGHT RN IN REPORT.
--- NOTE | 2021-10-26 04:39 | NUR ---
SHIFT SUMMARY ADMITTED FOR AMS/BILAT PNEUMONIA. DNR CODE. HE IS HOPEFUL TO DC HOME WITH HIS . TELEMETRY: PACED @ [address] IV ANTIB RX ARE SCHEDULED. HE IS ON ELLIQIS. STANDBY ASSIST W/FWW -BRP. INAJA. NO NEW CONCERNS THIS SHIFT
[2021-10-26 07:40] LABS: BASOPHILS ABSOLUTE AUTO 0.04 K/mm3 (0.00-0.23); BASOPHILS PERCENT AUTO 0 % (0-2); EOSINOPHILS ABSOLUTE AUTO 0.16 K/mm3 (0.00-0.68); EOSINOPHILS PERCENT AUTO 1 % (0-6); Hematocrit 28.9 % (37.0-53.0); Hemoglobin 9.5 g/dL (13.5-17.5); IMMATURE GRAN ABSOLUTE AUTO 0.05 K/mm3 (0.00-0.10); IMMATURE GRAN PERCENT AUTO 0 % (0-1); LYMPHOCYTES ABSOLUTE AUTO 0.68 K/mm3 (0.84-5.20); LYMPHOCYTES PERCENT AUTO 6 % (21-46); MONOCYTES ABSOLUTE AUTO 1.34 K/mm3 (0.16-1.47); MONOCYTES PERCENT AUTO 12 % (4-13); Mean Corpuscular HGB 33.2 pg (26.0-34.0); Mean Corpuscular HGB Conc 32.9 g/dL (31.5-36.5); Mean Corpuscular Volume 101 fL (80-100); Mean Platelet Volume 11.1 fL (9.1-12.4); NEUTROPHILS ABSOLUTE AUTO 9.01 K/mm3 (1.96-9.15); NEUTROPHILS PERCENT AUTO 80 % (41-73); Platelet Count 91 K/mm3 (150-400); RDW Coefficient Variation 13.6 % (11.7-14.2); Red Blood Cell Count 2.86 M/mm3 (4.30-5.90); White Blood Cell Count 11.28 K/mm3 (4.00-11.30)
[2021-10-26 07:49] LABS: Bun/Creatinine Ratio 28.3 (12.0-20.0); Calcium, Blood 9.2 mg/dL (8.5-10.1); Creatinine, Blood 1.87 mg/dL (0.60-1.20); Potassium, Blood 4.6 mmol/L (3.5-5.5)
[2021-10-26] MEDS ORDERED: AZIT250 PO (12:28)
[2021-10-26] MEDS ORDERED: VISBIOME 112.51 EACH PO (12:29)
[2021-10-26] MEDS ORDERED: CEFD300 PO (12:29)
--- NOTE | 2021-10-26 13:10 | NUR ---
Completed and fully signed POLST form sent to medical records for scanning into EMR. Original returned to pt's room and d/c paperwork to go with pt on d/c happening today.
--- NOTE | 2021-10-26 13:15 | NUR ---
DISCHARGE NOTE- PT WAS GIVEN VERBAL AND WRITTEN DISCHARGE INSTRUCTIONS AND ACKNOWLEGED UNDERSTANDING OF THEM, IV AND TELE DC'D PRIOR TO DISCHARGE. PT ESCORTED OUT VIA WC BY THE DIGITAL INTERN NO S&S OF DISTRESS NOTED AT THE TIME OF DISCHARGE. MEDS FAXED TO [facility] PER PT REQUEST.
== END 2021-10-26 13:02 | disposition home or self-care (01) | DRG 871 ==
LOC: ER 18:53 → MEDS 22:00
PROVIDERS: Emergency Medicine; Family Medicine; ADMIT Family Medicine
DX: A41.9 Sepsis, unspecified organism (principal); J18.9 Pneumonia, unspecified organism; G92.8 Other toxic encephalopathy; Z20.822 Contact with and (suspected) exposure to COVID-19; Z66 Do not resuscitate; D69.6 Thrombocytopenia, unspecified; D53.9 Nutritional anemia, unspecified; I48.0 Paroxysmal atrial fibrillation; I12.9 Hypertensive chronic kidney disease with stage 1 through stage 4 chronic kidney disease, or unspecified chronic kidney disease; N18.30 Chronic kidney disease, stage 3 unspecified; Z90.49 Acquired absence of other specified parts of digestive tract; Z95.0 Presence of cardiac pacemaker; Z88.6 Allergy status to analgesic agent; Z88.5 Allergy status to narcotic agent; Z79.01 Long term (current) use of anticoagulants; Z91.09 Other allergy status, other than to drugs and biological substances; Z79.899 Other long term (current) drug therapy; Z95.2 Presence of prosthetic heart valve; Z85.46 Personal history of malignant neoplasm of prostate; Z98.890 Other specified postprocedural states
CPT/HCPCS: 0241U; 36415; 51701; 70450; 71045; 80048; 80053; 81001; 82803; 83605; 83880; 85025; 87040; 92610; 93005; 93010; 96374; 97110; 97162; 97165; 97535; 99285-25; A9270; J0696

== ENCOUNTER → 2022-05-18 | Outpatient (CLI) | payer MEDICARE, OTHER ==
[~2022-05-18] MED LIST changes: +AZIT250 PO; +Alph-E-Mixed400 UNIT PO; +CALCIUM CITRAT200 MG PO; +CEFD300 PO; +GLUCOSAMINE-CH1 EAC7 PO; +LIDO700A20 TOP; +PRESERVISION A1 EAC1 PO; +Vitamin B Comple1 EA PO
[2022-05-20 11:48] LABS: Stool Occult Bld Immuno 1 Negative (NEGATIVE); Stool Occult Bld Immuno 2 Negative (NEGATIVE)
== END | disposition home or self-care (01) ==
LOC: LAB 13:10 → LAB SHORT 13:10
PROVIDERS: Registered Nurse Oncology
DX: D50.9 Iron deficiency anemia, unspecified (principal)
CPT/HCPCS: G0328

== ENCOUNTER 2022-07-16 13:03 | Emergency (ER) | payer OTHER, MEDICARE ==
[~2022-07-16] VITALS: Ht 185.4 cm; Wt 77.1 kg
[2022-07-16 13:32] LABS: BASOPHILS ABSOLUTE AUTO 0.03 K/mm3 (0.00-0.23); BASOPHILS PERCENT AUTO 0 % (0-2); EOSINOPHILS PERCENT AUTO 2 % (0-6); Hematocrit 29.2 % (37.0-53.0); Hemoglobin 9.5 g/dL (13.5-17.5); IMMATURE GRAN ABSOLUTE AUTO 0.01 K/mm3 (0.00-0.10); IMMATURE GRAN PERCENT AUTO 0 % (0-1); LYMPHOCYTES ABSOLUTE AUTO 0.59 K/mm3 (0.84-5.20); LYMPHOCYTES PERCENT AUTO 9 % (21-46); MONOCYTES ABSOLUTE AUTO 0.74 K/mm3 (0.16-1.47); MONOCYTES PERCENT AUTO 11 % (4-13); Mean Corpuscular HGB 33.1 pg (26.0-34.0); Mean Corpuscular HGB Conc 32.5 g/dL (31.5-36.5); Mean Corpuscular Volume 102 fL (80-100); Mean Platelet Volume 11.5 fL (9.1-12.4); NEUTROPHILS PERCENT AUTO 78 % (41-73); Platelet Count 126 K/mm3 (150-400); RDW Coefficient Variation 13.2 % (11.7-14.2); RDW Standard Deviation 49.3 fL (35.1-46.3); Red Blood Cell Count 2.87 M/mm3 (4.30-5.90); White Blood Cell Count 6.77 K/mm3 (4.00-11.30)
[2022-07-16 13:43] LABS: Albumin, Blood 3.7 g/dL (3.4-5.0); Albumin/Globulin Ratio 1.1 (0.8-1.8); Bilirubin, Total 0.4 mg/dL (0.1-1.0); Calcium, Blood 8.8 mg/dL (8.5-10.1); Creatinine, Blood 1.81 mg/dL (0.60-1.20); Globulin, Blood 3.3 g/dL (2.2-4.0); Potassium, Blood 4.8 mmol/L (3.5-5.5)
== END 2022-07-16 14:45 | disposition home or self-care (01) ==
LOC: ER 13:03
PROVIDERS: Student in an Organized Health Care Education/Training Program
DX: M54.2 Cervicalgia (principal); M54.9 Dorsalgia, unspecified; R07.89 Other chest pain; V59.40XA Driver of pick-up truck or van injured in collision with unspecified motor vehicles in traffic accident, initial encounter; I12.9 Hypertensive chronic kidney disease with stage 1 through stage 4 chronic kidney disease, or unspecified chronic kidney disease; N18.30 Chronic kidney disease, stage 3 unspecified; I48.91 Unspecified atrial fibrillation; Z88.5 Allergy status to narcotic agent; Z88.8 Allergy status to other drugs, medicaments and biological substances; Z79.899 Other long term (current) drug therapy; Z79.01 Long term (current) use of anticoagulants
CPT/HCPCS: 70450; 71260; 72125; 74177; 80053; 85025; 86850; 86900; 86901; 93005; 93010; A9270; Q9967

== ENCOUNTER 2024-06-01 10:34 | Inpatient (IN) | payer MEDICARE, OTHER ==
[~2024-06-01] VITALS: Ht 177.8 cm; Wt 76.3 kg
[2024-06-01] MEDS ORDERED: Albuterol 2.5 MG/3 ML VIAL INH SCH ×2 (10:50→13:00)
[2024-06-01] MEDS ORDERED: NS 1,000 ML IV SCH (10:50)
[2024-06-01 10:59] LABS: BASOPHILS ABSOLUTE AUTO 0.02 K/mm3 (0.00-0.23); BASOPHILS PERCENT AUTO 0 % (0-2); EOSINOPHILS ABSOLUTE AUTO 0.03 K/mm3 (0.00-0.68); EOSINOPHILS PERCENT AUTO 0 % (0-6); Hematocrit 25.5 % (37.0-53.0); Hemoglobin 8.2 g/dL (13.5-17.5); IMMATURE GRAN ABSOLUTE AUTO 0.05 K/mm3 (0.00-0.10); IMMATURE GRAN PERCENT AUTO 0 % (0-1); LYMPHOCYTES PERCENT AUTO 2 % (21-46); MONOCYTES ABSOLUTE AUTO 1.37 K/mm3 (0.16-1.47); MONOCYTES PERCENT AUTO 10 % (4-13); Mean Corpuscular HGB 32.4 pg (26.0-34.0); Mean Corpuscular HGB Conc 32.2 g/dL (31.5-36.5); Mean Corpuscular Volume 101 fL (80-100); Mean Platelet Volume 10.8 fL (9.1-12.4); NEUTROPHILS ABSOLUTE AUTO 11.78 K/mm3 (1.96-9.15); NEUTROPHILS PERCENT AUTO 87 % (41-73); Platelet Count 119 K/mm3 (150-400); RDW Coefficient Variation 13.7 % (11.7-14.2); RDW Standard Deviation 50.7 fL (35.1-46.3); Red Blood Cell Count 2.53 M/mm3 (4.30-5.90); White Blood Cell Count 13.55 K/mm3 (4.00-11.30)
[2024-06-01 11:21] LABS: Albumin, Blood 3.1 g/dL (3.4-5.0); Albumin/Globulin Ratio 0.9 (0.8-1.8); Bilirubin, Total 0.6 mg/dL (0.1-1.0); Bun/Creatinine Ratio 27.3 (12.0-20.0); Calcium, Blood 8.8 mg/dL (8.5-10.1); Creatinine, Blood 2.2 mg/dL (0.60-1.20); Globulin, Blood 3.6 g/dL (2.2-4.0); Potassium, Blood 4.7 mmol/L (3.5-5.5); Total Protein, Blood 6.7 g/dL (6.4-8.2)
[2024-06-01 11:37] LABS: Source, Urine Foley catheter
[2024-06-01] MEDS ORDERED: ALLOPURINOL100 MG PO (11:59)
[2024-06-01] MEDS ORDERED: ASPI81CH PO (12:00)
[2024-06-01] MEDS ORDERED: LACT PO (12:00)
[2024-06-01] MEDS ORDERED: DILTIAZEM 24HR240 M4 PO (12:00)
[2024-06-01] MEDS ORDERED: IPRAT-ALBUT 0.5-3 ML INH (12:00)
[2024-06-01] MEDS ORDERED: METO25ER PO (12:01)
[2024-06-01] MEDS ORDERED: MONT10T PO (12:02)
[2024-06-01] MEDS ORDERED: Inzo Antifun141.7 GM TOP (12:02)
[2024-06-01] MEDS ORDERED: MIRALAX17 GM PO (12:03)
[2024-06-01] MEDS ORDERED: DELTASONE20 MG PO (12:03)
[2024-06-01] MEDS ORDERED: MULVITA PO (12:03)
[2024-06-01] MEDS ORDERED: URSO300 PO (12:04)
[2024-06-01] MEDS ORDERED: Acetaminophen650 M1 PO (12:04)
[2024-06-01] MEDS ORDERED: LIDO700A20 TOP (12:05)
[2024-06-01] MEDS ORDERED: NITR.4SL SL (12:05)
[2024-06-01] MEDS ORDERED: ALBU2.5V5 INH (12:05)
[2024-06-01] MEDS ORDERED: TRAZ50 PO (12:06)
[2024-06-01 12:13] LABS: Bilirubin, Urine Neg (Neg); Blood, Urine 1+ (Neg); Glucose Qualitative, Urine Neg (Neg); Ketones, Urine Neg (Neg); Leukocyte Esterase, Urine Neg (Neg); Nitrite, Urine Neg (Neg); Protein, Urine 3+ (Neg); Urobilinogen, Urine NORM (Normal)
[2024-06-01 12:15] LABS: Influenza A, PCR NEGATIVE (NEGATIVE); Influenza B, PCR NEGATIVE (NEGATIVE); Resp Syncytial Virus, PCR NEGATIVE (NEGATIVE); SARS-Cov-2 (COVID-19) PCR, MMC NEGATIVE (NEGATIVE)
[2024-06-01] MEDS ORDERED: Azithromycin 500 MG in NS 250 ML IV ONE (12:25)
[2024-06-01] MEDS ORDERED: CefTRIAXone Sodium 1,000 MG in NS 100 ML IV ONE (12:25)
[2024-06-01 12:30] LABS: Appearance, Urine Clear (Clear); Color, Urine Yellow (P-Yellow)
[2024-06-01 12:31] LABS: White Blood Cells, Urine 0-2 /hpf (0-5)
[2024-06-01 12:33] LABS: Bacteria Rare /hpf; Squamous Epithelial Cells Rare /hpf (Few)
[2024-06-01] MEDS ORDERED: MethylPREDNISolone Sod Succ 125 MG Vial IV ONE (13:00)
[2024-06-01] MEDS ORDERED: FLU VACC TS2024-25(6MOS UP)/PF 45 MCG/0.5 ML SYRINGE IM SCH (13:35)
[2024-06-01] MEDS ORDERED: Ondansetron HCl 2 MG / ML 2ML Vial IV PRN (13:35)
[2024-06-01] MEDS ORDERED: Ipratropium/Albuterol SulF 2.5-0.5MG/3 ML Amp INH SCH (14:05)
[2024-06-01] MEDS ORDERED: Nitroglycerin 0.4 MG SUBL SL PRN (14:10)
[2024-06-01] MEDS ORDERED: Albuterol 2.5 MG/3 ML VIAL INH PRN (14:10)
[2024-06-01] MEDS ORDERED: Acetaminophen 325 MG TABLET PO PRN (14:10)
[2024-06-01] MEDS ORDERED: Lidocaine 4% 1 Patch TOP PRN (14:15)
[2024-06-01 15:20] VITALS: BP 136/92
[2024-06-01] MEDS ORDERED: AMOCLA500 PO (15:28)
[2024-06-01] MEDS ORDERED: AZIT250 PO (15:29)
[2024-06-01 15:45] VITALS: BP 124/85
--- NOTE | 2024-06-01 16:00 | NUR ---
ARRIVAL TO PCU patient arrived to pcu at 1507. patient transfered to pcu bed via slider sheet from [facility]. patient is alert and oriented to self and person. patient denies pain, chest pain/pressure or shortness of breath. patient lung sounds expiratory wheeze throughout and on 2l nc with spo2 >90%. patient baseline room air. patient is on tele afib 120-130s. cardizem is on and currently at 10mg/hr. see critical flow sheet. patient blood pressure stable. respirations 26-30 range. patient has reddness to bottom and open blister spot on right and left butt cheeks. photo is in the chart. this rn called md poole to notify. see admit shift assessment for further detials. , merna, was at bedside for admit and provided most of the information. [facility] this week. medications complete. patient is npo at this time due to aspiration pneumonia. speech evaluation is in. plan of care is up to date at this time.
[2024-06-01] MEDS ORDERED: Lactated Ringer's 1,000 ML IV SCH (16:05)
[2024-06-01] MEDS ORDERED: Haloperidol Lactate Inj. 5 MG/ML Injection IM PRN (16:05)
[2024-06-01] MEDS ORDERED: MethylPREDNISolone Sod Succ 125 MG Vial IV SCH (18:00)
--- NOTE | 2024-06-01 18:01 | NUR ---
shift summary patient setting bed alarm off and needing reminders to use call light. patient respirations increase to the high 30s when patient gets up to use the bedside comode. patient is using accessory muscles. spo2 >90% on 2l nc. patient is a one person assist with walker to bedside comode. cardizem remains at 10mg/hr with tele rate afib 100-120s. no acute changes since previous note. plan remains up to date
[2024-06-01 19:48] VITALS: BP 137/62
[2024-06-01] MEDS ORDERED: Lactobacil 2-S.Thermo-Bifido 1 1 Cap PO SCH (21:00)
[2024-06-01] MEDS ORDERED: Sennosides 8.6 MG Tab PO SCH (21:00)
[2024-06-01] MEDS ORDERED: Docusate Sodium 100 MG Cap PO SCH (21:00)
[2024-06-01 23:41] VITALS: BP 111/65
[2024-06-02 03:38] VITALS: BP 114/67
[2024-06-02 04:12] LABS: BASOPHILS ABSOLUTE AUTO 0.01 K/mm3 (0.00-0.23); BASOPHILS PERCENT AUTO 0 % (0-2); EOSINOPHILS PERCENT AUTO 0 % (0-6); Hematocrit 22.6 % (37.0-53.0); Hemoglobin 7.4 g/dL (13.5-17.5); IMMATURE GRAN ABSOLUTE AUTO 0.02 K/mm3 (0.00-0.10); IMMATURE GRAN PERCENT AUTO 0 % (0-1); LYMPHOCYTES ABSOLUTE AUTO 0.05 K/mm3 (0.84-5.20); LYMPHOCYTES PERCENT AUTO 1 % (21-46); MONOCYTES ABSOLUTE AUTO 0.07 K/mm3 (0.16-1.47); MONOCYTES PERCENT AUTO 1 % (4-13); Mean Corpuscular HGB 32.5 pg (26.0-34.0); Mean Corpuscular HGB Conc 32.7 g/dL (31.5-36.5); Mean Corpuscular Volume 99 fL (80-100); Mean Platelet Volume 11.3 fL (9.1-12.4); NEUTROPHILS ABSOLUTE AUTO 5.97 K/mm3 (1.96-9.15); NEUTROPHILS PERCENT AUTO 98 % (41-73); Platelet Count 90 K/mm3 (150-400); RDW Coefficient Variation 13.8 % (11.7-14.2); RDW Standard Deviation 49.5 fL (35.1-46.3); Red Blood Cell Count 2.28 M/mm3 (4.30-5.90); White Blood Cell Count 6.12 K/mm3 (4.00-11.30)
[2024-06-02 04:35] LABS: Calcium, Blood 8.4 mg/dL (8.5-10.1); Creatinine, Blood 1.87 mg/dL (0.60-1.20); Potassium, Blood 5.2 mmol/L (3.5-5.5)
--- NOTE | 2024-06-02 05:20 | NUR ---
EOS: PT WAS CALM AND COOPERATIVE WITH CARE. A0X2, 1-2 ASSIST WHEN GETTING OUT OF BED TO COMMODE, WEAK AND NEEDS HELP WITH LINES/CORDS. STEVENSON REMAINS. PT SLEPT THROUGH THE NIGHT.
[2024-06-02 07:28] VITALS: BP 142/80
[2024-06-02] MEDS ORDERED: Aspirin 81 MG Chew PO SCH (09:00)
[2024-06-02] MEDS ORDERED: Enoxaparin 30 MG/0.3 ML SYR SC SCH (09:00)
[2024-06-02 11:32] VITALS: BP 134/81
[2024-06-02] MEDS ORDERED: CefTRIAXone Sodium 1,000 MG in NS 100 ML IV SCH (12:00)
[2024-06-02] MEDS ORDERED: Azithromycin 500 MG in NS 250 ML IV SCH (12:00)
[2024-06-02] MEDS ORDERED: NS 1,000 ML IV SCH (14:10)
[2024-06-02 15:27] VITALS: BP 138/78
--- NOTE | 2024-06-02 17:04 | NUR ---
SHIFT SUMMARY: BEDSIDE REPORT RECIEVED THIS AM. PT A/O TO SELF AND PERSON, SOMETIMES TO PLACE, AND PLEASANT W/CARE. PT UP TO CHAIR W/ MINIMAL ASSIST W/ WALKER. SBP 130s, MAP>65. MONITOR SHOWS AFIB AND PACED RYTHM. RATE 80s-90s. DILTIAZEM GTT HAS BEEN ON SB SINCE 0700. SPO2>95% ON 2L NC THIS AM, NOW SPO2>93% ON RA, PT DENIES SOB. STEVENSON PATENT DRAINING YELLOW URINE TO GRAVITY. ATTEMPTED BEDSIDE SWALLOW EVAL WHICH PT FAILED. PT REMAINS NPO. FAMILY AT BEDSIDE FOR MOST OF THE DAY, WOULD LIKE CALLED FOR UPDATES AND SPEECH EVAL RESULT. CALL LIGHT IN REACH AND BED ALARM ON. WILL REPORT TO ONCOMING RN.
[2024-06-02 21:18] VITALS: BP 138/64
[2024-06-03] VITALS (8 sets, daily range): BP systolic 137–168; BP diastolic 81–115
[2024-06-03] MEDS ORDERED: DiphenhydrAMINE HCl 50 MG/ML 1ML Vial IV ONE (03:40)
[2024-06-03 03:54] LABS: Base Excess Venous -5.4 mmol/L; Bicarbonate Venous 20.6 mmol/L (24.0-30.0); PCO2 Venous 28.6 mmHg (38-42); pH Blood Venous 7.43 (7.34-7.37)
[2024-06-03 04:01] LABS: BASOPHILS ABSOLUTE AUTO 0.01 K/mm3 (0.00-0.23); BASOPHILS PERCENT AUTO 0 % (0-2); EOSINOPHILS PERCENT AUTO 0 % (0-6); Hematocrit 25.6 % (37.0-53.0); Hemoglobin 8.2 g/dL (13.5-17.5); IMMATURE GRAN ABSOLUTE AUTO 0.05 K/mm3 (0.00-0.10); IMMATURE GRAN PERCENT AUTO 0 % (0-1); LYMPHOCYTES PERCENT AUTO 1 % (21-46); MONOCYTES ABSOLUTE AUTO 0.37 K/mm3 (0.16-1.47); MONOCYTES PERCENT AUTO 3 % (4-13); Mean Corpuscular HGB 31.9 pg (26.0-34.0); Mean Corpuscular Volume 100 fL (80-100); Mean Platelet Volume 11.3 fL (9.1-12.4); NEUTROPHILS ABSOLUTE AUTO 10.72 K/mm3 (1.96-9.15); NEUTROPHILS PERCENT AUTO 95 % (41-73); Platelet Count 125 K/mm3 (150-400); RDW Coefficient Variation 13.8 % (11.7-14.2); RDW Standard Deviation 49.7 fL (35.1-46.3); Red Blood Cell Count 2.57 M/mm3 (4.30-5.90); White Blood Cell Count 11.25 K/mm3 (4.00-11.30)
--- NOTE | 2024-06-03 04:28 | NUR ---
SHIFT SUMMARY ASSUMED CARE OF PT AT 1900. PT A&O1 TO SELF; PT BELIEVED HE WAS HOME WITH HIS "CLAN" AND IT WAS 1990. PT WAS PLEASANT AT THE BEGINING OF SHIFT TIL ABOUT MIDNIGHT WHEN HE ATTEMPTED TO GET UP OUT OF BED NUMEROUS TIMES, PULLED OFF HIS CPAP MASK TWICE AND ATTEPMTED TO HIT ME WHEN I GOT IN HIS WAY WHILE TRYING LEAVE HIS BED. PT APPEARED UNSTEADY, CONFUSED AND NONCOMPLIANT WITH DIRECTIONS TO SIT BACK IN BED D/T SAFETY CONCERNS. GAVE PT PRN HALDOL FOR AGITATION BUT DID NOT WORK. RESIDENT NOTIFIED OF PT STILL BEING UNCOOPERATIVE AND AGITATED, ORDERED ONE TIME DOSE BENEDRYL, WHICH HELPED PT CALM DOWN AND RELAX IN BED. PT NOW EYES CLOSED AND CHEST RISING IN BED. BED ALARM ON, BED IN LOWEST POSITION AND CALL LIGHT WITHIN REACH.
[2024-06-03 04:53] LABS: Albumin, Blood 2.9 g/dL (3.4-5.0); Albumin/Globulin Ratio 0.9 (0.8-1.8); Bilirubin, Total 0.5 mg/dL (0.1-1.0); Bun/Creatinine Ratio 34.2 (12.0-20.0); Calcium, Blood 8.7 mg/dL (8.5-10.1); Creatinine, Blood 1.96 mg/dL (0.60-1.20); Globulin, Blood 3.4 g/dL (2.2-4.0); Potassium, Blood 4.9 mmol/L (3.5-5.5); Total Protein, Blood 6.3 g/dL (6.4-8.2)
[2024-06-03] MEDS ORDERED: LORazepam 2 MG/ML 1ML Injection IV ONE (05:50)
--- NOTE | 2024-06-03 06:19 | NUR ---
UPDATE BED ALARM WENT OFF IN PT ROOM, PT ATTEMPTING TO GET OUT OF BED WHILE PULLING OFF NASAL CANNULA. PT REFUSED TO SIT IN BED AND PLACE NC BACK ON. ANOTHER BATCH PLANT OPERATOR ATTEMPTED TO HELP AND REFRAIN THE PT FROM GETTING UP, PT ATTTEMPTED TO HIT RN, I REPLACED RN AND STOOD INFRONT OF PT IN ATTEMPT TO REASON WITH HIM AND AT THIS TIME PT'S LIPS BECAME BLUE AND NO O2 SAT WAS READING BECAUSE PT RIPPED THAT OFF WELL. NONREBREATHER MASK PLACED ON PT, BUT PT RIPPED THAT OFF WELL. HE REFUSED TO ALLOW TO PLACE AN O2 PROBE TO SEE HOW LOW HIS OXYGENATION WAS. AT THIS TIME, OVERNIGHT MD NOTIFIED OF SITUATION; MD ORDERED ATIVAN AND RESTRAINTS. PT GIVEN ATIVAN WHILE RESTRAINTS BEING PLACED. PT STILL FIGHTING RESTRAINTS AND BEING NONCOMPLIANT. NRB MASKED PLACED AND OXYGENATION SATURATION INCREASED WHILE LIPS NORMALIZED TO A PINK COLOR. FAMILY CALLED WITH UPDATE ON SITUATION AND STATED IF ANYTHING NEW ARRISES TO PLEASE CALL AND SHE WILL COME TO BEDSIDE. MASKS PLACED AND O2 PROBE
--- NOTE | 2024-06-03 08:00 | NUR ---
NURSE NOTE; AT BEDSIDE, REMOVED RESTRAINTS FOR BEDSIDE MONITORING. SHORTLY AFTER REMOVING STARTS PULLING OFF NASAL CANNULA. ATTEMPTS TO PUT NASAL CANNULA BACK ON, PT GRABS HER ARM AND TRYS TO BITE HER. ATTEMPT TO REDIRECT SEVERAL TIMES WITHOUT SUCCESS. BEGINS PULLING AT LINES AND SWINGING AT STAFF. 02 SATS DECREASE TO 83% AND WERE UNABLE TO SUCCESSFULLY PUT 02 ON. DISCUSS PLACING BACK IN RESTRAINTS FOR SAFTEY AND 02 PLACEMENT. SPOUSE AGREES TO THIS PLAN. BILATERAL WRIST RESTRAINTS PLACED, 02 MASK PLACED AND SATS RETURN TO 98% ON 15L. DR. RICE AT BEDSIDE TO DISCUSS PLAN OF CARE. SPOUSE DECIDES WOULD LIKE TO CONTINUE ABX FOR A COUPLE DAYS WITH RESTRAINTS NECESSARY FOR SAFTEY. WILL CONTINUE TO MONITOR FOR POSSIBLE RESTRAINT REMOVAL.
--- NOTE | 2024-06-03 11:05 | NUR ---
Met with pt's at bedside this am, she stated she is hopeful the IV antibiotics will help the patient return to baseline. She states he seemed to "really enjoy" spending his days with other veterans. According to nurse notes and current bedside RN, the patient had attempted get up out of bed during the night, and had attempted to strike at least 2 separate nurses. His states he is "extremely strong," and she "recognizes the need for restraints," especially given the current plan of attempting to intervene with IV antibiotics for pneumonia. He was also receiving IV fluids, which have now been stopped due to concern for fluid overload. An attempt was made to remove restraints early this morning, but the patient attempted to bite his and struck out again at staff. Unfortunately, he remains in restraints at this time. is very complimentary of [facility] staff as well as hospital staff and states her appreciation of the collaboration between the two. Pt's remains optimistic that pt's mentation will improve enough to [facility] the [facility]. Palliative care will remain available and continue to provide support to both patient and . This RN reached out via t/c to [facility] regarding use of restraints, specifically if patient would need to be restraint free for any period of time prior to returning to the [facility]. Awaiting response.
--- NOTE | 2024-06-03 11:46 | NUR ---
Upon receiving a referral for spiritual care, I visited the patient. Patient is asleep. His spouse, Joan is bedside and shares about the patient's medical history, his (and her) family (they have been 29yrs), and about their strong Denominational beliefs. She speaks about the challenges she has faced as the patient's dementia symptoms have increased and the struggle it has been to put him a SNF. He has been at [facility] [place] [facility] for only a week and he has contracted CAP. I reinforced helpful attitudes and practices and provided therapeutic listening and prayer. Joan responded well and showed signs of greater peace.
[2024-06-03] MEDS ORDERED: Morphine Sulfate 20 MG/1ML 1 ML Oral Syringe SL PRN ×2 (15:45→16:50)
[2024-06-03] MEDS ORDERED: MethylPREDNISolone Sod Succ 125 MG Vial IV ONE (15:50)
--- NOTE | 2024-06-03 18:44 | NUR ---
SHIFT SUMMARY A+O X 2-3, SELF, PERSON, PLACE. ORIENTATION IMPROVED THROUGHTOUT DAY. PATIENT WAS IN TOUGH CUFFS THIS AM AND TRANSITED TO [facility] AT AROUND 1200. PATIENT WAS ABLE TO TAKE FREQUENT BREAKS FROM RESTRAINTS WITH FAMILY AT BEDSIDE. PATIENT IS DOING MUCH BETTER NOW AND NO LONGER PULLING AT LINES D/C RESTRAINT ORDER AT THIS TIME. PATIENT REQUIRES HIGH DEMAND OF OXYGEN WHEN MOVING AROUND, WHEN RESTING IN BED PATIENT IS ABLE TO MAINTAIN ABOVE 90% ON 4 LITERS. GOT UP TO A CHAIR AND WAS ABLE TO SIT UP FOR AROUND THREE HOURS BEFORE REQUESTING TO GO BACK TO BED. PATIENT IS ABLE TO MAKE BEEDS KNOWN INTERMIT, CALL LIGHT IN REACH.
[2024-06-03] MEDS ORDERED: Metoprolol Tartrate 1 MG/ML 5 ML VIAL IV ONE (23:30)
[2024-06-04] VITALS (9 sets, daily range): BP systolic 134–167; BP diastolic 79–118
[2024-06-04] MEDS ORDERED: LORazepam 2 MG/ML 1ML Injection IV ONE (00:55)
[2024-06-04] MEDS ORDERED: HyDROXyzine HCl 25 MG Tab PO ONE (02:50)
--- NOTE | 2024-06-04 07:15 | NUR ---
PT HAD SHIFT LONG AGITATION BRIEFLY INTERRUPTED WITH MEDICATIONS. PT DID NOT BECOME VIOLENT BUT DID CONTINUE TO RESIST ALL THERAPIES AND CONSTANTLY PULLED AT LINES/CORDS/O2. PT DID DESAT SEVERAL TIMES THROUGHOUT THE SHIFT D/T REMOVING O2 THERAPY. PT REMAINS NPO AND THIS IS A SOURCE OF AGITATION TO THE PT WHO PERSEVERATES ON WATER. PT FREQUENTLY GIVEN ORAL SWABS MOISTENTED WITH THICKENED WATER. PT PULLED ON GOWN FREQUENTLY AND PT WAS EVENTUALLY ALLOWED TO COVEREED WITH JUST BED SHEETS. PT DID HAVE AN EPISODE OF EPISTAXIS TO THE LEFT NARE UNSURE IF THIS WAS D/T NASAL DRYNESS OR PICKING INDEX FINGER OF THAT HAND WAS BLOODY AND NOSING PICKING BEHAVIOR WAS OBSERVED AND PT REQUIRED REDIRECTION TO NOT RESTART NOSE BLEED. PT RECEIVED HALDOL 2.5MG IM X2 FOR AGITATION, ROXINOL 5MG X2 FOR AIR HUNGER, ATIVAN 0.5MG IV FOR AGITATION X1 AND ATARAX 25MG PO X1 FOR AGITATION. ATARAX WAS CRUSHED AND MIXED WITH SMALL AMOUNT OF WATER TO MAKE A SLURE AND SPOONED TO PT WITH MINIMAL CHOKING NOTED. STEVENSON REMAINS IN PLACE AND CONTINUES TO DRAIN WELL. PT MINIMALLY REDIRECTABLE AND DID REQUIRE RESTRAINTS ON DAYS AND PREVIOUS NOC SHIFT. PT WAS OUT OF RESTRAINTS WHEN I ASSUMED CARE AT 1900 AND HAD BEEN FOR A FEW HOURS PER DAY SHIFT RNS. PT WAS TACHYPNEIC AND TACHYCARDIC WITH AGITATION. PT RECEIVED IV METOPROLOL 2.5MG X1 FOR HR 130S. WITH AGITATION CONTROLLED VITAL SIGNS WERE MUCH IMPROVED AND PT OXYGENATION ALSO IMPROVED.
[2024-06-04] MEDS ORDERED: MethylPREDNISolone Sod Succ 125 MG Vial IV SCH (09:00)
--- NOTE | 2024-06-04 10:24 | NUR ---
AM NOTE: UPON SHIFT START PATIENT AGGITATIED AND PULLING AT CORDS, OXYGEN TUBING AND CATHETER. MEDICATED PER EMAR FOR PAIN. PATIENT OPENING EYE TO VOICE, ANSWERING QUESTIONS WITH ONE-TWO WORDS, AND FOLLOWING SIMPLE COMMANDS. OVERALL WEAK. CONFUSED, BUT ALERT TO AT BEDSIDE. Q2 TURNING AND NEEDED. BED ALARM IN PLACE. TELE SHOWING AFIB WITH RH 90-110'S. SBP 150-170'S. PACER. IV SALINE LOCKED. SCATTERED BRUISING TO UPPER ARMS. PPP. ON 2L NASAL CANNULA SATING 92-95%. AT TIMES TAKING OFF O2 AND PATIENT 87-91%. CONGESTED COUGH. RESPIRATORY RATE 18-24. AT BEDSIDE STATES PATIENT BREATHING SEEMS IMPROVED. SUCTION AT BEDSIDE. PATIENT PICKING NOSE AND AT TIMES CAUSING SMALL NOSE BLEED. PETROLIUM JELLY APPLIED TO NARES TO HELP WITH DRYNESS. LUNGS SOUNDS CLEAR IN UPPER LOBES AND CONGESTED/CRACKLES IN BASES. BOWEL TONES PRESENT. SPEECH THERAPY IN AND DIET ADVANCED. PATIENT DID WELL WITH MEDS CRUSHED IN APPLESAUCE. THICKENED LIQUIDS BY SPOON. ORAL CARE WITH SUCTION. ABDOMIN SOFT AND NONTENDER WITH PALPITATION. STVEENSON CATH IN PLACE DRAINING TO GRAVITY. URINE ROSALIND/YELLOW COLORING. CATH CARE COMPLETED THIS AM WITH MORNING BED BATH. SKIN OVERALL FRAIL/FRAGILE. AT BEDSIDE, UPDATED ON PLAN OF CARE. BROUGHT IN POA PAPERWORK, COPY PLACED IN PAPER CHART. CALL LIGHT IN REACH. PATIENT RESTING IN BED AT THIS TIME WITH AT BEDSIDE. BED ALARM IN PLACE.
--- NOTE | 2024-06-04 11:31 | NUR ---
DR. RICE TO BEDSIDE, THIS RN PRESENT FOR PROVIDER ROUNDING WELL AND DAUGHTER/SON ARRIVED TOWARDS END OF MD VISIT. PATIENT WAKES TO VOICE AND CONTINUES TO TAKE OFF OXYGEN TUBING WHEN AWAKE. AFTERNOON VITALS STABLE. IV ABX INFUSING AT THIS TIME. PLAN TO GET PATIENT UP TO RECLINER ONCE MORE AWAKE LATER THIS AFTERNOON. Q2 TURNING AND NEEDED. FAMILY REMAINS AT BEDSIDE AT THIS TIME.
--- NOTE | 2024-06-04 11:46 | NUR ---
Spiritual care visit conducted. Patient is lying in bed and asleep, although he opened his eyes for a few seconds, many times during my visit as I spoke with Joan, His spouse. Joan explains about the strained family dynamics and we discussed paths for reconciliation. We discussed the strong bita that she has and how she continually is hoping for ways to grow as a person. She says that her bita in God brings the inspiration and hope that she needs for each day. I provided gentle appliance counselor and prayer. Joan responded well and showed signs of being encouraged in her bita.
[2024-06-04 12:27] LABS: BASOPHILS PERCENT AUTO 0 % (0-2); EOSINOPHILS PERCENT AUTO 0 % (0-6); Hemoglobin 8.3 g/dL (13.5-17.5); IMMATURE GRAN ABSOLUTE AUTO 0.04 K/mm3 (0.00-0.10); IMMATURE GRAN PERCENT AUTO 0 % (0-1); LYMPHOCYTES PERCENT AUTO 1 % (21-46); MONOCYTES ABSOLUTE AUTO 0.59 K/mm3 (0.16-1.47); MONOCYTES PERCENT AUTO 6 % (4-13); Mean Corpuscular HGB Conc 31.9 g/dL (31.5-36.5); Mean Corpuscular Volume 100 fL (80-100); NEUTROPHILS ABSOLUTE AUTO 8.98 K/mm3 (1.96-9.15); NEUTROPHILS PERCENT AUTO 93 % (41-73); Platelet Count 118 K/mm3 (150-400); RDW Coefficient Variation 13.7 % (11.7-14.2); RDW Standard Deviation 50.2 fL (35.1-46.3); Red Blood Cell Count 2.59 M/mm3 (4.30-5.90); White Blood Cell Count 9.71 K/mm3 (4.00-11.30)
--- NOTE | 2024-06-04 12:32 | NUR ---
PATIENT WAKES TO VOICE. OPEN EYES, SMILES AT THIS RN AND NODS HEAD HE WOULD LIKE TO TRY LUNCH. THIS RN SITS PATIENT UP ALL THE WAY, PREFORMS ORAL CARE. PATIENT FOLLOWING ALL DIRECTIONS WITH ORAL CARE AND STAYING AWAKE. UPON TRYING LUNCH PATIENT WOULD NOT REMOVE FOOD FROM SPOON AND SPOON JUST SAT IN OPEN MOUTH. DAUGHTER AND SON AT BEDSIDE. THIS RN STEPPED OUT OF ROOM AND ATTEMPTED TO TRY LUNCH AGAIN AFTER 15 MIN. PATIENT NOT STAYING AWAKE TO SAFELY TRY LUNCH AGAIN. LUNCH HELD AT THIS TIME. IV ABX INFUSING. CALL LIGHT IN REACH.
[2024-06-04 12:48] LABS: Bun/Creatinine Ratio 36.8 (12.0-20.0); Calcium, Blood 8.8 mg/dL (8.5-10.1); Creatinine, Blood 2.12 mg/dL (0.60-1.20)
[2024-06-04] MEDS ORDERED: Dextrose 5% 1,000 ML IV SCH (15:00)
--- NOTE | 2024-06-04 18:36 | NUR ---
SHIFT SUMMARY: NO ACUTE CHANGES. PATIENT REMAINS SLEEPY/LETHARGIC MOST OF DAY. WAKING TO VOICE OR CARES. AT TIMES AGGITATED WITH CORDS AND OXYGEN TUBING. MEDICATED X2 THIS SHIFT WITH ROXANOL. TELE CONTINUES TO SHOW SR WITH HR 80-100'S. WEARING 1-2L NASAL CANNULA. CONTINUES TO HAVE COARSE/CONGESTED COUGH. SUCTION AT BEDSIDE. THIS RN ATTEMPTED BOTH LUNCH AND DINNER MEALS AND PATIENT NOT ABLE TO FOLLOW DIRECTIONS TO SAFELY EAT OR TOO LETHARGIC TO EAT SAFELY. FAMILY AT BEDSIDE THIS SHIFT. BED ALARM IN PLACE. STEVENSON CONTINUES TO DRAIN CLEAR/YELLOW URINE. IV ABX INFUSED. CALL LIGHT IN REACH.
[2024-06-05 04:41] VITALS: BP 159/103
[2024-06-05 05:24] LABS: BASOPHILS ABSOLUTE AUTO 0.01 K/mm3 (0.00-0.23); BASOPHILS PERCENT AUTO 0 % (0-2); EOSINOPHILS PERCENT AUTO 0 % (0-6); Hematocrit 26.4 % (37.0-53.0); Hemoglobin 8.4 g/dL (13.5-17.5); IMMATURE GRAN ABSOLUTE AUTO 0.05 K/mm3 (0.00-0.10); IMMATURE GRAN PERCENT AUTO 1 % (0-1); LYMPHOCYTES ABSOLUTE AUTO 0.15 K/mm3 (0.84-5.20); LYMPHOCYTES PERCENT AUTO 1 % (21-46); MONOCYTES ABSOLUTE AUTO 0.81 K/mm3 (0.16-1.47); MONOCYTES PERCENT AUTO 8 % (4-13); Mean Corpuscular HGB 31.8 pg (26.0-34.0); Mean Corpuscular HGB Conc 31.8 g/dL (31.5-36.5); Mean Corpuscular Volume 100 fL (80-100); Mean Platelet Volume 11.1 fL (9.1-12.4); NEUTROPHILS ABSOLUTE AUTO 9.81 K/mm3 (1.96-9.15); NEUTROPHILS PERCENT AUTO 91 % (41-73); Platelet Count 119 K/mm3 (150-400); RDW Coefficient Variation 13.6 % (11.7-14.2); RDW Standard Deviation 49.7 fL (35.1-46.3); Red Blood Cell Count 2.64 M/mm3 (4.30-5.90); White Blood Cell Count 10.83 K/mm3 (4.00-11.30)
[2024-06-05 06:00] LABS: Albumin, Blood 3.1 g/dL (3.4-5.0); Albumin/Globulin Ratio 0.9 (0.8-1.8); Bilirubin, Total 0.5 mg/dL (0.1-1.0); Bun/Creatinine Ratio 37.1 (12.0-20.0); Calcium, Blood 8.7 mg/dL (8.5-10.1); Creatinine, Blood 2.05 mg/dL (0.60-1.20); Globulin, Blood 3.4 g/dL (2.2-4.0); Potassium, Blood 4.6 mmol/L (3.5-5.5); Total Protein, Blood 6.5 g/dL (6.4-8.2)
--- NOTE | 2024-06-05 06:56 | NUR ---
PT WAS ASLEEP UNTIL MIDNIGHT AND THEN BECAME MORE AGITATED DESPITE MEDICATIONS OF HALDOL AND ROXANOL. PT CONTINUED TO REMOVE O2 AND CARDIAC MONITORING. PT DID ATTEMPT TO REMOVE IV AT ONE POINT AND IT WAS WRAPPED AND SECURED. PT WAS SUCTIONED AND DID ALLOW THAT AND ORAL CARE TO BE DONE. PT HAD DARK RED SPUTUM IN ORAL CAVITY THAT WAS SWAB AND SUCTIONED OUT, UNCLEAR IF PART OF THE BLOOD IS FROM PREVIOUS EPISTAXIS OR FROM LUNGS. PT STATES "LEAVE ME ALONE" WHEN STAFF ATTEMPTING TO REPLACE O2 PT DOES DESAT. PT WAS ABLE TO BE ON ROOM AIR FOR PART OF THIS SHIFT AND MAINTAINED O2 SATS 88-92%. PT STARTING TO DESAT MORE THIS MORNINGIN FROM 84-87%.
--- NOTE | 2024-06-05 10:06 | NUR ---
THE PT'S CALLED FOR AN UPDATE. DR. RICE NOTIFIED DURING ROUNDING AND STATED SHE WILL CALL THE PT'S AND TALK WITH HER. SEE NOTES FOR UPDATES.
[2024-06-05] MEDS ORDERED: Dextrose 5% 1,000 ML IV SCH (10:10)
--- NOTE | 2024-06-05 11:38 | NUR ---
THERAPY DOG CALLED, AND TEODORA VALDERRAMA VISITED WITH THE PT AND .
[2024-06-05] MEDS ORDERED: LORazepam 2 MG/ML 1ML Injection IV PRN (11:40)
[2024-06-05] MEDS ORDERED: Atropine Sulfate 1% Opth Soln 2ML BTL MM PRN (11:50)
[2024-06-05 11:53] VITALS: BP 147/92
--- NOTE | 2024-06-05 13:06 | NUR ---
Spiritual care visit coducted. The patient is more awake today and pulling his air mask off. Spouse, Joan, is bedside and places the mask repeatedly back on his face. She shares about his poor prognosis and the discussion that took place about discharging the patient on hospice. She is saddened by this and welcomes prayer. She showed signs of deeper peace after our visit and voices appreciation.
--- NOTE | 2024-06-05 15:01 | NUR ---
SHIFT SUMMARY SOMMULANT BUT ARROUABLE TO TOUCH AND VERBAL STIMULI,DOES NOT RESPOND TO ORIENTATION QUESTIONS, DOES NOT FOLLOW COMMANDS, BED REST, Q2T. CONTINUOUS SPO2 MONITORING, LUNGS SOUND COARSE CRAKELS T/O THAT WORSENS WITH EXPIRATIONS AND DIMMISHED T/O, AMOUNT OF ORAL SECREATIONS IMPROVED SINCE START OF SHIFT, PT HAS WEAK COUGH AND SWALLOW, UNABLE TO CLEAR ORAL SECREATIONS, SPO2 GREATER THAN 90% WHILE ON 1L O2 VIA NC/ MASK, DOES OCCASIONALLY REMOVE MASK AND DROPS INTO THE 80 S%. PT NO BM THIS SHIFT, BOWEL TONES PRESENT IN ALL 4Q. STEVENSON SECURE/ PATENT/DRAINING TO GRAVITY, PT PULLED AT STEVENSON THIS AFTERNOON, BLEEDING FROM MEATUS. DR. RICE ROUNDED ON PT THIS AM NEW ORDERS PLACED FOR IV FLUIDS AND MEDICATIONS FOR AGGIATION/SOB. [facility] CALL[facility] AND UPDATE GIVEN BY THIS RN. DR. RICE TO BEDSIDE THIS AM, UPDATED ON PLAN OF CARE. WAITING FOR [facility] TO [facility], [facility]NA[facility] CONTACT WITH [facility].
[2024-06-05 15:14] VITALS: BP 129/87
[2024-06-05 20:09] VITALS: BP 165/116
--- NOTE | 2024-06-05 21:19 | NUR ---
ASSUMPTION OF CARE/ASSESSMENT: ASSUMED CARE OF PT AT 1900; BEDSIDE REPORT RECIEVED FROM ISAIAS RODRIGUEZ. PT A&O X 1, LETHARGIC AND NOT FOLLOWING DIRECTIONS. 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 CURRENTLY NC @ 3 LPM, SPO2 90<, AUDITORY WHEEZES NOTED; COARSE/WHEEZE IN R. SIDE, COARSE/DIM IN L. SIDE. SR/AFIB ON MONITOR WITH HR 90-100, SBP 150-160'S, PROVIDER AWARE OF HTN PER PREVIOUS RN. PT HYPOACTIVE BT; NPO AT THIS TIME FOR ASPIRATION RISK D/T LETHARGY. D5 GTT INFUSING @ 75 MLS/HR. STEVENSON PATENT AND DRAINING TO GRAVITY; ATTENDS IN PLACE. RFA IV PATENT. PRN ATIVAN GIVEN AT START OF SHIFT FOR RESTLESSNESS AND PULLING OFF O2. BED LOWERED, CALL LIGHT IN REACH.
[2024-06-06 04:21] VITALS: BP 149/82
[2024-06-06 07:24] VITALS: BP 152/95
--- NOTE | 2024-06-06 10:00 | NUR ---
PT ARRIVED TO VISIT THE PT. THE PT STARTED TO WAKE UP AND HE BECAME VERY AGGITATED PULLING AT HIS LINES, TRYING TO BITE, AND WHEN REDIRECTING HIS HANDS VIA AND STAFF, HE BEGAN TO SQUEEZE ALL HANDS/OBJECTS HARD AND DUG HIS NAILS INTO IT/THEM. THE PT APPEARED TO BE STRUGGLING BREATHING AND HAS ALOT OF MOISTURE WITH HIS RESPIRATIONS. HE WAS MEDICATED PER EMAR WITH 1MG ATIVAN IV IN 0.5MG INTERVALS X2 AND 5MG ROXONAL SL. PT POSTIONED WITH EXTRA PILLOWS TO PREVENT HARM TO PT'S FAMILY AND HIMSELF. A SQUEEZE BALL WAS MADE AND GIVEN TO THE PT TO HELP WITH AGGITATION. PT'S REMAINS AT THE BEDSIDE AND CALL LIGHT IS IN REACH. CASE MANAGEMENT WORKING ON D[facility]C TO [facility]. THE PT'S IS NOT RECEPTIVE TO TRANSITIONING FULLY TO COMFORT CARE WHILE IN THE HOSPITAL AND IS ADIMIT ON GETTING THE PT HOME TO [facility] BEFORE THAT TRANSITION. DISCUSSED WITH TEAM. SEE NOTES FOR UPDATES.
[2024-06-06] MEDS ORDERED: IPRAT-ALBUT 0.5-3 ML INH (10:18)
[2024-06-06] MEDS ORDERED: ATROPINE SULFATE2 M1 SL (10:25)
[2024-06-06] MEDS ORDERED: LIDOCAINE1 EAC1 TOP (10:26)
[2024-06-06] MEDS ORDERED: DOCU100 PO (10:26)
[2024-06-06] MEDS ORDERED: MORP20L SL (10:28)
[2024-06-06] MEDS ORDERED: ONDA4ODT MM (10:28)
--- NOTE | 2024-06-06 10:43 | NUR ---
[facility] CALL[facility] AND REPORT GIVEN ON THE PT TO D/C HOME WITH HOSPICE.
[2024-06-06] MEDS ORDERED: LORazepam 2 MG/ML 1ML Injection IV ONE (11:30)
--- NOTE | 2024-06-06 11:55 | NUR ---
Spiritual care visit conducted. I observe patient constantly pulling at his tele lines and trying to pull his oxygen mask off. Joan pulls his hands down often but just continues talking. She shares that this is a challenging day because the patient will be transported to the [place] on hospice and she knows that they will have hard conversations about his and the dying process. She will have some family support during those conversations. I provided prayer and gentle counseling with good affect.
== END 2024-06-06 12:03 | disposition hospice, home (50) | DRG 871 ==
LOC: ER 10:34 → PCU 13:28
PROVIDERS: Emergency Medicine; Family Medicine Adult Medicine; ADMIT Internal Medicine
PROC: 3E03329 Introduction of Other Anti-infective into Peripheral Vein, Percutaneous Approach (ICD-10-PCS; principal; 2024-06-01)
PROC: 0T9B70Z Drainage of Bladder with Drainage Device, Via Natural or Artificial Opening (ICD-10-PCS; 2024-06-01)
DX: A41.9 Sepsis, unspecified organism (principal); G93.41 Metabolic encephalopathy; J96.01 Acute respiratory failure with hypoxia; J69.0 Pneumonitis due to inhalation of food and vomit; N17.0 Acute kidney failure with tubular necrosis; I13.0 Hypertensive heart and chronic kidney disease with heart failure and stage 1 through stage 4 chronic kidney disease, or unspecified chronic kidney disease; I48.20 Chronic atrial fibrillation, unspecified; F02.811 Dementia in other diseases classified elsewhere, unspecified severity, with agitation; J45.901 Unspecified asthma with (acute) exacerbation; J44.1 Chronic obstructive pulmonary disease with (acute) exacerbation; Z66 Do not resuscitate; Z51.5 Encounter for palliative care; Z78.1 Physical restraint status; D53.9 Nutritional anemia, unspecified; G30.9 Alzheimer's disease, unspecified; R13.10 Dysphagia, unspecified; R54 Age-related physical debility; I50.9 Heart failure, unspecified; N18.30 Chronic kidney disease, stage 3 unspecified; D63.1 Anemia in chronic kidney disease; I25.10 Atherosclerotic heart disease of native coronary artery without angina pectoris; G47.33 Obstructive sleep apnea (adult) (pediatric); Z79.01 Long term (current) use of anticoagulants; Z85.46 Personal history of malignant neoplasm of prostate; I71.21 Aneurysm of the ascending aorta, without rupture; Z90.49 Acquired absence of other specified parts of digestive tract; Z95.0 Presence of cardiac pacemaker; Z95.2 Presence of prosthetic heart valve; Z90.79 Acquired absence of other genital organ(s); Z88.6 Allergy status to analgesic agent; Z88.5 Allergy status to narcotic agent; Z88.8 Allergy status to other drugs, medicaments and biological substances; Z79.82 Long term (current) use of aspirin; Z79.899 Other long term (current) drug therapy
CPT/HCPCS: 0241U; 36415; 51702; 71045; 80048; 80053; 81001; 82803; 83605; 85025; 87040; 92610; 93005; 93010; 94640; 94644; 94645; 94660; 94664; 94760; 94762; 96361; 96365; 96368; 96375; 99285-25; A9270; J0456; J0696; J1200; J1630; J1650; J2060; J2919; J7030; J7050; J7070; J7120